=== PATIENT | male | born 2005 | race Caucasian/White ===

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

== ENCOUNTER 2023-12-20 06:52 | Emergency (ER) | payer BC ==
[~2023-12-20] VITALS: Ht 195.5 cm; Wt 113.4 kg
[~2023-12-20 06:52] MED LIST changes: +REGLAN10 M1 PO
[2023-12-20 07:41] LABS: BASO # 0.1 10*3/uL (0.0-0.1); BASO % 0.6 % (0.0-1.0); EOS # 0.3 10*3/uL (0.0-0.4); EOS % 4.1 % (1.0-4.0); HEMATOCRIT 46.5 % (42.0-52.0); LYMPH # 2.2 10*3/uL (1.3-4.4); LYMPH % 26.8 % (27.0-41.0); MEAN CELL VOLUME 83.8 fl (80.0-94.0); MEAN CORPUSCULAR HGB 28.1 pg (27.0-31.0); MEAN CORPUSCULAR HGB CONC 33.5 g/dl (33.0-37.0); MEAN PLATELET VOLUME 9.8 fl (9.6-12.3); MONO # 0.8 10*3/uL (0.1-1.0); MONO % 9.4 % (3.0-9.0); NEUT # 4.7 10*3/uL (2.3-7.9); PLATELET COUNT AUTOMATED 319 10*3/uL (130-400); RED BLOOD COUNT 5.55 10*6/uL (4.50-5.90); RED CELL DISTRI WIDTH 11.4 % (0-14.5); WHITE BLOOD COUNT 8.1 10*3/uL (4.8-10.8)
[2023-12-20 08:02] LABS: ALKALINE PHOSPHATASE 90 U/L (46-116); BUN 12 mg/dl (9-23); CHLORIDE 107 mmol/L (98-107); LIPASE 42 U/L (12-53); POTASSIUM 4.3 mmol/L (3.4-5.1); SGPT/ALT 8 U/L (5-49); TOTAL PROTEIN 7.7 gm/dL (6.0-8.0)
[2023-12-20 08:27] LABS: BILIRUBIN Negative (Negative); BLOOD Negative (Negative); CLARITY Clear (Clear); COLOR Yellow (Yellow); GLUCOSE Negative (Negative); KETONE Trace (Negative); LEUKO ESTERASE Negative (Negative); NITRITE Negative (Negative); UROBILINOGEN 0.2 E.U./dl (0.0-1.0)
[2023-12-20 08:36] LABS: BACTERIA TRACE; EPITHELIAL CELLS 0-2; WBC 0-2 wbc/hpf (0-5)
[2023-12-20] MEDS ORDERED: Na Phos, Dibasic/Na Phos, Mo 1 EA BOT R ONE (10:15)
[2023-12-20] MEDS ORDERED: MAGNESIUM CITRATE 296 ML BOT PO ONE (10:15)
== END 2023-12-20 10:20 | disposition home or self-care (01) ==
LOC: ED 06:52
PROVIDERS: Internal Medicine
DX: K59.00 Constipation, unspecified (principal); Z88.1 Allergy status to other antibiotic agents; Z88.8 Allergy status to other drugs, medicaments and biological substances

== ENCOUNTER 2024-12-15 04:06 | Emergency (ER) | payer BC ==
[~2024-12-15] VITALS: Ht 195.5 cm; Wt 117.9 kg
[2024-12-15] MEDS ORDERED: Dicyclomine Hydrochloride 20 MG/10 ML OSYR PO STA (04:25)
[2024-12-15] MEDS ORDERED: MG-AL HYDROXIDE/SIMETICONE 30 ML UDC PO STA (04:25)
[2024-12-15] MEDS ORDERED: Lidocaine Hydrochloride 15 ML UDC PO STA (04:25)
== END 2024-12-15 06:06 | disposition home or self-care (01) ==
LOC: ED 04:06
DX: K22.89 Other specified disease of esophagus (principal); Z79.899 Other long term (current) drug therapy; Z88.1 Allergy status to other antibiotic agents; Z88.8 Allergy status to other drugs, medicaments and biological substances